=== PATIENT | female | born 1945 | race Caucasian/White ===

== ENCOUNTER 2017-04-19 17:37 | Outpatient (CLI) | payer MEDICARE, OTHER ==
[2015-02-20 15:17] VITALS: BP 108/68
[2017-04-19 18:13] LABS: eGFR (African) > 60; eGFR (Non-African) > 60
== END 2017-04-19 17:40 ==
LOC: LAB 17:37
PROVIDERS: ATTEND Physician Assistant
DX: M79.672 Pain in left foot (principal); M79.89 Other specified soft tissue disorders; Z13.6 Encounter for screening for cardiovascular disorders
CPT/HCPCS: 36415; 80053; 80061; 84550

== ENCOUNTER 2017-05-30 08:19 | Outpatient (CLI) | payer MEDICARE, OTHER ==
[2015-02-20 15:17] VITALS: BP 108/68
== END 2017-05-30 08:20 ==
LOC: OUT 08:19
PROVIDERS: ATTEND General Practice
DX: N95.2 Postmenopausal atrophic vaginitis (principal); N31.8 Other neuromuscular dysfunction of bladder
CPT/HCPCS: G0463

== ENCOUNTER 2017-06-27 07:01 | Day surgery (SDC) | payer MEDICARE, OTHER ==
[2015-02-20 15:17] VITALS: BP 108/68
[2017-06-27] MEDS ORDERED: NORMAL SALINE 1,000 ML IV.SOLN IV ONE (08:00)
[2017-06-27] MEDS ORDERED: LACTATED RINGERS 1,000 ML IV.SOLN IV ONE (08:00)
[2017-06-27] MEDS ORDERED: ACETAMINOPHEN 1,000 MG/100 ML INJ IV ONE (08:00)
[2017-06-27] MEDS ORDERED: PROPOFOL 200 MG/20 ML VIAL IV ONE (08:00)
[2017-06-27] MEDS ORDERED: SALINE FLUSH 10 ML DISP.SYRIN IVF ONE (08:00)
--- NOTE | 2017-06-28 11:14 | Operative Note ---
SURGEON: Inocencio Izaguirre MD ANESTHESIA: IV sedation. PREOPERATIVE DIAGNOSIS: Urinary incontinence. POSTOPERATIVE DIAGNOSIS: Urinary incontinence. PROCEDURE PERFORMED: Cystoscopy. OPERATIVE PROCEDURE AND FINDINGS: After I spoke with Mrs. William, she was taken to the operating room and placed in the supine position. After an adequate level of general sedation, she was placed in a lithotomy position. The operating cystoscope with a 12-degree lens was placed into the urinary bladder. The urethra was atrophic. The bladder mucosa was unremarkable in its appearance. A uniforms sales representative biopsy was taken. No lesions were identified or abnormality seen. Pictures were taken of the ureteral orifices, which were normal in appearance. This ended the operative procedure. All saline was allowed to escape from her bladder. She was awakened in the operating room and transferred to the recovery room in awake and stable condition. cc: Dr. Diane BOOTH
== END 2017-06-27 07:02 ==
LOC: OPSURG 07:01
PROVIDERS: ATTEND General Practice
DX: R32 Unspecified urinary incontinence (principal)
CPT/HCPCS: 88305; A4355; J2704; J7030; J7120; 52204; S1016

== ENCOUNTER 2017-07-25 07:52 | Outpatient (CLI) | payer MEDICARE, OTHER ==
[2015-02-20 15:17] VITALS: BP 108/68
== END 2017-07-25 08:22 ==
LOC: OUT 07:52
PROVIDERS: ATTEND General Practice
DX: R39.15 Urgency of urination (principal)
CPT/HCPCS: G0463

== ENCOUNTER 2018-01-26 19:24 | Emergency (ER) | payer MEDICARE, OTHER ==
--- NOTE | 2018-01-26 20:01 | ED Physician Documentation ---
Fall - HISTORIAN Historian: patient, other (family) - HPI Stated Complaint: fall hit back of head Chief Complaint: Fall Additional Information: pt fell backwards hitting occiput on cement Onset: just prior to arrival Where: park Context: lost balance r: moderate Associated Symptoms:: no loss of consciousness Location of Pain/Injury: head, upper back. denies: neck, face, chest, abdomen Injury to Right Extremity: none Injury to Left Extremity: shoulder - ROS CONST: no problems NEURO: denies: dizziness, anxiety MS/SKIN/LYMPH: denies: weakness, numbness - PAST HX Past History: other (htn fibromyalgia) Allergies/Adverse Reactions: Allergies Allergy/AdvReac Type Severity Reaction Status Date / Time aspirin AdvReac Abdominal Verified 01/26/18 19:51 Pain ibuprofen AdvReac Abdominal Verified 01/26/18 19:51 Pain metoclopramide HCl AdvReac Nausea/Vomi Verified 01/26/18 19:54 [From Reglan] ting - SOCIAL HX Smoking History: non-smoker Alcohol Use: none Drug Use: none - FAMILY HX Family History: no significant history - VITAL SIGNS Vital Signs: Vital Signs Temp Pulse Resp BP Pulse Ox 97.9 F 77 16 138/72 96 01/26/18 19:41 01/26/18 19:41 01/26/18 19:41 01/26/18 19:41 01/26/18 19:41 - REVIEWED ASSESSMENTS Nursing Assessment Reviewed: Yes Vitals Reviewed: Yes ED Results Lab/Radiology - Radiology Radiology Impressions: ct reveals spinal stenosis c5-6 plus no bleed brain - Orders Orders: ED Orders Category Date Time Status CT BRAIN W/O CONTRAST Stat Exams 01/26/18 Ordered Fall Physical Exam - Physical Exam General Appearance: mild distress Head: No: non-tender, no swelling Neck: trachea midline, decreased ROM, limited ROM, pain with neck movement. No : non-tender, painless ROM Eye: GIDEON, EOMI ENT: nml external inspection, no dental injury, no oral injury Resp/CVS: chest non-tender, no ecchymosis, breath sounds nml Abdomen: soft, non-tender Neuro: oriented x3, sensation nml, motor nml, mood/affect nml, emergency medical dispatcher nml, reflexes nml, emergency medical dispatcher symmetrical Skin: color nml, no rash. No: cyanosis, diaphoresis, pallor, ecchymosis Back: normal inspection, no CVA tenderness, no vertebral tenderness Extremities: atraumatic, pelvis stable, hips non-tender, no pedal edema - Fito Coma Score Eyes Open: Spontaneous Speech: Oriented Motor: Obeys Commands Discharge Clincal Impression: fall w/ cerebral concussion, Cervical spine ankylosis Referrals: Diane Cool MD [Primary Care Provider] - 2 Days Comments: home avoid all strenuous activity. f/u very soon w/ pcp--ret to ed prn Condition: Good Disposition: 01 HOME, SELF-CARE Decision to Admit: NO Decision Time: 21:26
[2018-01-26 21:52] VITALS: BP 112/80
--- NOTE | 2018-01-27 16:53 | Diagnostic Imaging Report ---
GHASSAN SAENZ [facility] [address] [facility] [address] [address] Report Submission Date: January 26, 2018 8:25:41 PM CDT Patient Study Name: RONN GARCIA Date: January 26, 2018 8:07:19 PM CDT Modality Type: CT\SR Gender: F Description: CT BRAIN W/O CONTRAST : 45 Institution: [facility] Physician: GHASSAN SAENZ Computed tomography head without contrast History: Fall with head injury Findings: Transverse brain sections are obtained without contrast revealing mild chronic small vessel ischemic gliosis in periventricular white matter. Minimal cerebral atrophy is present. Yepez white differentiation is intact. There is no intracranial hemorrhage. The skull is intact. Visualized sinuses and mastoid air cells are clear. Impression: 1. Minimal cerebral atrophy. 2. Minimal chronic small vessel ischemic gliosis in periventricular white matter. Electronically signed on January 26, 2018 8:25:41 PM CDT by: Ricardo BOOTH
--- NOTE | 2018-01-27 16:54 | Diagnostic Imaging Report ---
GHASSAN SAENZ [facility] [address] [facility] [address] [place] [address]. [address] Report Submission Date: January 26, 2018 8:27:45 PM CDT Patient Study Name: RONN GARCIA Date: January 26, 2018 8:09:29 PM CDT Modality Type: CT\SR Gender: F Description: CT C-SPINE W/O CONTRAS : 45 Institution: [facility] Physician: GHASSAN SAENZ Computed tomography cervical spine without contrast History: Fall with head injury Findings: Transverse cervical spine sections are obtained without contrast. Anterior C1/2 arthropathy is present. Carotid atherosclerosis is observed. Advanced C4/C5 degenerative disc disease is present. Anterior discectomy and solid interbody fusion are present at C5/C6. Minimal multilevel bilateral facet arthropathy is observed. There is no fracture, subluxation, paraspinal swelling , or hardware failure. Impression: C5/C6 anterior fusion and mild multilevel cervical spondylosis without fracture. Electronically signed on January 26, 2018 8:27:45 PM CDT by: Ricardo BOOTH
== END 2018-01-26 21:33 | disposition home or self-care (01) ==
LOC: ED 19:24
DX: S06.0X0A Concussion without loss of consciousness, initial encounter (principal); M45.2 Ankylosing spondylitis of cervical region; W19.XXXA Unspecified fall, initial encounter; Y92.9 Unspecified place or not applicable; Y93.9 Activity, unspecified; Y99.9 Unspecified external cause status
CPT/HCPCS: 70450; 72125; 99284

== ENCOUNTER 2018-02-20 14:29 | Outpatient (CLI) | payer MEDICARE, OTHER ==
--- NOTE | 2018-02-20 15:46 | Diagnostic Imaging Report ---
ANILA FLORES [facility] [address] [facility] [address] [address] Report Submission Date: Feb 20, 2018 2:59:01 PM CDT Patient Study Name: RONN GARCIA Date: Feb 20, 2018 2:33:18 PM CDT Modality Type: DX Gender: F Description: SPINE : 45 Institution: [facility] Physician: ANILA FLORES Examination: Plain film thoracic spine History: UPPER BACK PAIN S/P FALL X 1 MONTH AGO (Hx) Findings: 3 views of the thoracic spine demonstrates osteopenia. Mid to lower thoracic vertebral body endplate narrowing - approximately T10. Thoracolumbar curvature to the left. No prevertebral regularity. Impression: Osteopenia degenerative changes and curvature. Compression abnormality T10 - chronicity indeterminate without older exams. Electronically signed on Feb 20, 2018 2:59:01 PM CDT by: Jamin BOOTH
== END 2018-02-20 14:30 ==
LOC: RAD 14:29
PROVIDERS: ATTEND Family Medicine
DX: M54.6 Pain in thoracic spine (principal)
CPT/HCPCS: 72072

== ENCOUNTER 2018-02-28 12:39 | Outpatient (CLI) | payer MEDICARE, OTHER ==
[2018-02-28 12:56] LABS: MEAN CORPUSCULAR HEMOGLOBIN 31.2 pg (28.0-34.0); MEAN CORPUSCULAR VOLUME 99.4 fl (80.0-100.0)
[2018-02-28 12:57] LABS: BASOPHILS % 0.4 (0.0-1.5); EOSINOPHILS % 0.6 % (0.0-6.8); MONOCYTES % 2.6 % (0.0-11.0); NEUTROPHILS # 7.2 # k/uL (1.4-7.7)
== END 2018-02-28 12:40 ==
LOC: LAB 12:39
PROVIDERS: ATTEND Family Medicine
DX: Z79.01 Long term (current) use of anticoagulants (principal); M54.2 Cervicalgia; T14.8XXA Other injury of unspecified body region, initial encounter; X58.XXXA Exposure to other specified factors, initial encounter; Y92.9 Unspecified place or not applicable; Y93.9 Activity, unspecified; Y99.9 Unspecified external cause status
CPT/HCPCS: 36415; 85025; 85610; 85651; 85730

== ENCOUNTER 2019-03-07 10:02 | Outpatient (CLI) | payer MEDICARE, OTHER ==
[2019-03-07 10:13] LABS: BASOPHILS % 0.6 % (0.0-1.5); NEUTROPHILS # 7.4 # k/uL (1.4-7.7)
[2019-03-07 11:30] LABS: eGFR (Non-African) > 60
== END 2019-03-07 10:04 ==
LOC: LAB 10:02
PROVIDERS: ATTEND Family Medicine
DX: I49.8 Other specified cardiac arrhythmias (principal)
CPT/HCPCS: 36415; 80053; 84443; 85025

== ENCOUNTER 2019-03-11 09:32 | Outpatient (CLI) | payer MEDICARE, OTHER ==
[2019-03-11 10:16] LABS: eGFR (Non-African) > 60
--- NOTE | 2019-03-12 12:12 | Diagnostic Imaging Report ---
YANG NEAL [facility] [address] [facility].[address] [address] Report Submission Date: Mar 12, 2019 12:10:12 PM CDT Patient Study Name: SHEREE RATLIFF Date: Mar 12, 2019 10:40:08 AM CDT Modality Type: DX Gender: F Description: BILAT FEET 3 VIEW : [birth year] Institution: [facility] Physician: YANG NEAL Examination: Plain film feet History: BILAT FEET AND ANKLE PAIN Findings: 3 views of the right and left foot demonstrates osteopenia. Articular degenerative changes. No fracture or dislocation. Lateral view demonstrates pes planus. Calcaneal spurs. Metallic suture adjacent to the proximal phalanx 1st digit left foot. Vascular calcifications. Impression: Osteopenia and degenerative changes. Pes planus. No acute appearing cortical abnormality. Electronically signed on Mar 12, 2019 12:10:12 PM CDT by: Jamin BOOTH
== END 2019-03-11 09:33 ==
LOC: RAD 09:32
PROVIDERS: ATTEND Family Medicine
DX: E83.52 Hypercalcemia (principal)
CPT/HCPCS: 36415; 80053; 93306

== ENCOUNTER 2019-03-20 07:45 | Outpatient (CLI) | payer MEDICARE, OTHER ==
--- NOTE | 2019-03-21 07:54 | Diagnostic Imaging Report ---
ANILA FLORES [facility] [address] [address] Report Submission Date: Mar 20, 2019 9:35:42 AM CDT Patient Study Name: RONN GARCIA Date: Mar 20, 2019 12:00:00 AM CDT Modality Type: DEXA\OT Gender: F Description: DEXA : 45 Institution: [facility] Physician: ANILA FLORES Examination: Bone density History: Assess bone mineralization Comparison exams: None available Technique: DEXA protocol Findings: Average bone mineral density from L1 through L4: 0.879 grams cm2. T score: -2.5 Average bone mineral density of the left femoral neck: 0.777 grams cm2. T score: -1.9 Average bone mineral density of the right femoral neck: 0.778 grams cm2. T score: -1.9 Impression: Lumbar spine osteoporosis. Bilateral femoral neck osteopenia. Electronically signed on Mar 20, 2019 9:35:42 AM CDT by: Jamin BOOTH
== END 2019-03-20 07:47 ==
LOC: RAD 07:45
PROVIDERS: ATTEND Family Medicine
DX: N95.1 Menopausal and female climacteric states (principal)
CPT/HCPCS: 77080

== ENCOUNTER 2019-04-25 15:11 | Outpatient (CLI) | payer MEDICARE, OTHER ==
[2019-04-25 16:34] LABS: eGFR (Non-African) > 60
== END 2019-04-25 15:13 ==
LOC: LAB 15:11
PROVIDERS: ATTEND Family Medicine
DX: E83.52 Hypercalcemia (principal)
CPT/HCPCS: 36415; 80048

== ENCOUNTER 2019-05-17 08:55 | Outpatient (CLI) | payer MEDICARE, OTHER ==
[2019-05-17 09:53] LABS: eGFR (Non-African) > 60
== END 2019-05-17 09:05 ==
LOC: LAB 08:55
PROVIDERS: ATTEND Family Medicine
DX: E83.52 Hypercalcemia (principal)
CPT/HCPCS: 80048; 83970